=== PATIENT | female | born 1965 | race African-American/Black ===

== ENCOUNTER → 2017-08-06 | Outpatient (CLI) | payer BC ==
[~2017-08-06] MED LIST: PREMARIN0.625 MG PO; SIMVASTATIN10 MG PO
--- NOTE | 2017-08-06 14:55 | Diagnostic Imaging Report ---
TECHNIQUE: Magnetic resonance imaging of the LEFT KNEE was performed WITHOUT injected contrast. HISTORY: Internal derangement, pain, reported history of surgery 1994 COMPARISON: None available. FINDINGS: LIGAMENTS AND TENDONS: ACL: Intact PCL: Intact Collateral ligaments: Intact Iliotibial band: Unremarkable Popliteal tendon: Intact Extensor mechanism: Intact JOINT: Menisci: Medial: Contour irregularity and attenuation, centered near the junction of the body and posterior horn. Results in peripheral extrusion of the body remnants. Lateral: Intact Articular Cartilage: Medial Compartment: Intermediate to high-grade erosion of the weightbearing cartilage. Lateral Compartment: No focal defect. Patellofemoral Compartment: Superficial erosion of the lateral patellar facet and adjacent lateral trochlea. Joint Fluid: The amount of fluid within the joint is within physiologic limits. BONES: No focal or infiltrative bone marrow replacing abnormality. No acute fracture. SOFT TISSUES: Mild edema within the adipose tissue interposed between the proximal patellar tendon and lateral femoral condyle. A multilobulated and multiloculated 1.4 cm (AP) x 1.7 cm (ML) x 1.2 cm (CC) ganglion cyst adjacent to the posterior margin of the posterior cruciate ligament, likely arises either from the tibial insertion of the posterior cruciate ligament or the tibial insertion of the posterior horn of the medial meniscus. IMPRESSION: 1. Postsurgical changes versus degenerative tearing of the medial meniscus. 2. 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 3. Findings which can be seen in the setting of patellar tendon lateral femoral condyle friction syndrome, correlate for patellar maltracking. Signed by: Dr. Mor Rosado D.O., M.M.M. on 08/06/2017 2:51 PM
== END ==
LOC: MRI 12:43
PROVIDERS: ATTEND Specialist
DX: M23.92 Unspecified internal derangement of left knee (principal)